=== PATIENT | male | born 1980 | race Caucasian/White ===

== ENCOUNTER 2016-10-27 09:53 | Emergency (ER) | payer OTHER | END 2016-10-27 10:15 | disposition home or self-care (01) | LOC: FER 09:53 | DX: R68.84 Jaw pain (principal); E11.9 Type 2 diabetes mellitus without complications; I10 Essential (primary) hypertension; F17.200 Nicotine dependence, unspecified, uncomplicated; Z79.899 Other long term (current) drug therapy; Z79.84 Long term (current) use of oral hypoglycemic drugs ==

== ENCOUNTER 2017-02-05 13:59 | Emergency (ER) | payer OTHER | END 2017-02-05 15:52 | disposition home or self-care (01) | LOC: FER 13:59 | DX: K40.90 Unilateral inguinal hernia, without obstruction or gangrene, not specified as recurrent (principal); N43.3 Hydrocele, unspecified; E11.9 Type 2 diabetes mellitus without complications; I10 Essential (primary) hypertension; F17.210 Nicotine dependence, cigarettes, uncomplicated | CPT/HCPCS: 76870 ==

== ENCOUNTER 2020-10-13 14:05 | Emergency (ER) | payer OTHER ==
[2020-10-13 15:58] LABS: BASOPHIL 0.4 % (0-2); EOSINOPHIL 0.7 % (0-5); HCT 47.1 % (42.0-52.0); HGB 14.9 g/dl (13.2-18.0); LYMPHOCYTE 29.9 % (15-48); MCH 28.4 pg (25.0-31.0); MCHC 31.6 g/dL (32.0-36.0); MCV 89.7 fL (78.0-100.0); MPV 9.4 fL (6.0-9.5); NEUTROPHIL 61.6 % (41-80); NRBC 0; PLT 319 K/uL (150-400); RBC 5.25 M/uL (4.70-6.00); RDW 13.6 % (11.5-14.0); WBC 12.1 K/uL (4.0-10.5)
[2020-10-13 16:03] LABS: INR 1.06 (0.9-1.2); PROTHROMBIN TIME 13.1 SECONDS (11.4-13.6); PTT 25.5 SECONDS (22.2-34.7)
[2020-10-13 16:15] LABS: PRO-BNP 584 pg/mL (<125)
[2020-10-13 16:27] LABS: ALBUMIN 3.8 g/dL (3.4-5.0); ALKALINE PHOSHATASE 63 U/L (46-116); ALT 30 U/L (16-63); AST 16 U/L (15-37); BILIRUBIN - TOTAL 0.4 mg/dL (0.2-1.0); BUN 20 mg/dL (7-18); BUN/CREAT RATIO (CALC) 13.8 RATIO; C-REACTIVE PROTEIN <0.20 mg/dL (<=0.90); CHLORIDE 99 mmol/L (98-107); CO2 (BICARBONATE) 29 mmol/L (21-32); CREATININE 1.45 mg/dL (0.67-1.17); GLOBULIN (CALCULATION) 3.3 g/dL; GLUCOSE 195 mg/dL (74-106); LDH 166 U/L (85-227); MAGNESIUM 1.4 mg/dL (1.8-2.4); POTASSIUM 3.9 mmol/L (3.5-5.1); TOTAL PROTEIN 7.1 g/dL (6.4-8.2)
== END 2020-10-13 17:45 | disposition left against medical advice (07) ==
LOC: FER 14:05
PROVIDERS: Emergency Medicine
DX: I48.91 Unspecified atrial fibrillation (principal); E83.42 Hypomagnesemia; Z53.20 Procedure and treatment not carried out because of patient's decision for unspecified reasons; F17.210 Nicotine dependence, cigarettes, uncomplicated
CPT/HCPCS: 36415; 70450; 80053; 82728; 83540; 83550; 83615; 83735; 83880; 84439; 84443; 84484; 85025; 85610; 85730; 86140; 93005